=== PATIENT | male | born 1985 | race Caucasian/White ===

== ENCOUNTER 2016-11-02 21:07 | Emergency (ER) | payer OTHER ==
[~2016-11-02] VITALS: Ht 167.6 cm; Wt 119.0 kg
[~2016-11-02 21:07] MED LIST: ALBU8.5H3 INH; CETI10CA PO; DAYQUIL; DM/P295L11 PO; GUAI118L94 PO; IBUP-1542 PO
[2016-11-02 21:21] VITALS: Ht 167.6 cm; Wt 119.0 kg
[2016-11-03] MEDS ORDERED: KETOROLAC 30 MG INJ IM STA (01:13)
[2016-11-03] MEDS ORDERED: AZIT250T94 PO (01:19)
[2016-11-03] MEDS ORDERED: CIPR7.5D4 LEFT EAR (01:19)
[2016-11-03] MEDS ORDERED: IBUP-1542 PO (01:19)
[2016-11-03] MEDS ORDERED: ACETAMINOPHEN 325 MG TAB PO ONE (01:30)
--- NOTE | 2016-11-03 01:35 | ERD ---
ER Documentation Chief Complaint Date/Time DATE: 11/03/16 TIME: 01: Chief Complaint ST, COUGH BODY ACHES FEVER X 3 DAYS HPI 30-year-old otherwise healthy male presents emergency department complaining of sore throat, productive cough, bilateral ear aches, body aches, and fever 3 days. Patient states his symptoms began with a sore throat and have gradually worsened. Patient has not attempted to treat his fever or symptoms with any medication at home thus far because he states he cannot swallow anything without pain. Patient denies nausea, vomiting, diarrhea, abdominal pain, headache, visual changes or shortness of breath. Patient denies any history of asthma. ROS All systems reviewed and are negative except as per history of present illness. Medications Home Meds Active Scripts Ibuprofen* (Motrin*) 600 Mg Tab, 600 MG PO Q6, #30 TAB Prov:ROE GROSSMAN PA-C 11/03/16 Azithromycin* (Zithromax*) 250 Mg Tablet, 250 MG PO .ZPACK DIRECTED, #6 TAB TAKE 500 MG (2 TABS) THE FIRST DAY THEN 250 MG (1 TAB) DAYS 2-5 Prov:ROE GROSSMAN PA-C 11/03/16 Ciprofloxacin Hcl/Dexameth (Ciprodex Otic Suspension) 7.5 Ml Drops.susp, 4 DROP LEFT EAR BID for 7 Days, EA Prov:ROE GROSSMAN PA-C 11/03/16 Ibuprofen* (Motrin*) 600 Mg Tab, 600 MG PO Q6H Y for PAIN AND OR ELEVATED TEMP, #30 TAB Prov:ALPHONSO PIMENTEL NP 08/07/15 Albuterol Sulfate* (Proair HFA*) 8.5 Gm Hfa.aer.ad, 2 PUFF INH Q4H Y for WHEEZING AND SOB, #1 INHALER Prov:ALPHONSO PIMENTEL NP 08/07/15 Cetirizine Hcl* (Zyrtec*) 10 Mg Capsule, 10 MG PO DAILY, #30 TAB.CHEW Prov:ALPHONSO PIMENTEL NP 08/07/15 Guaifenesin-Codeine Phosphate* (Guaifenesin* with Codeine Liq) 120 Ml Liquid, 5 ML PO Q4H for COUGH, #60 ML Prov:ALPHONSO PIMENTEL NP 08/07/15 Reported Medications Ibuprofen* (Ibuprofen*) Unknown Strength Tablet, PO Q6, TAB 08/07/15 [dayQuil] Unknown Strength No Conflict Check 08/07/15 Dm/P-Ephed/Acetaminoph/Doxylam (Nyquil D Cold & Flu Liquid) Unknown Strength Liquid, PO, EA 08/07/15 Allergies Allergies: Coded Allergies: No Known Allergy (Unverified , 04/04/14) PMhx/Soc History of Surgery: Yes (cholecystectomy ) Anesthesia Reaction: No Hx Neurological Disorder: No Hx Respiratory Disorders: No Hx Cardiac Disorders: No Hx Psychiatric Problems: No Hx Miscellaneous Medical Probl: No Hx Alcohol Use: Yes (Occassionally 2-3 cans of beer a week) Hx Substance Use: No Hx Tobacco Use: No Physical Exam Vitals Vital Signs Date Time Temp Pulse Resp B/P Pulse Ox O2 Delivery O2 Flow Rate FiO2 11/02/16 21:21 102.3 95 20 128/70 99 Physical Exam Const: Well-developed, well-nourished, no acute distress Head: Atraumatic Eyes: Normal Conjunctiva ENT: Normal External Ears, right-sided tympanic membrane nonerythematous, nonbulging. Left ear canal mildly swollen and erythematous with erythema extending into the tympanic membrane. No tympanic bulging. Oropharynx erythematous with right-sided tonsillar swelling 2+ and exudate present. Left- sided tonsil mildly swollen and erythematous without exudate. Anterior painful lymphadenopathy. Neck: Full range of motion.~ No meningismus. Resp: Clear to auscultation bilaterally, no wheezes, rhonchi, rales Cardio: Regular rate and rhythm, no murmurs Abd: Soft, non tender, non distended. Normal bowel sounds Skin: No petechiae or rashes Back: No midline or flank tenderness Ext: No cyanosis, or edema Neur: Awake and alert Psych: Normal Mood and Affect Results 24 hrs Current Medications Medications (Trade) Dose Ordered Sig/Ziyad Route PRN Reason Start Time Stop Time Status Last Admin Dose Admin Ketorolac Tromethamine (Toradol) 30 mg ONCE STAT IM 11/03/16 01:13 11/03/16 01:14 DC 11/03/16 01:47 Acetaminophen (Tylenol Tab) 650 mg ONCE ONCE PO 11/03/16 01:30 11/03/16 01:31 DC 11/03/16 01:47 Procedures/MDM This is an otherwise healthy 30-year-old male who presents to the emergency department of cough, body aches, fever, earache, and sore throat 3 days. Patient's temperature measured 102.3 upon arrival. Patient is non-hypoxic and normotensive. Physical exam consistent with Upper respiratory infection and acute pharyngitis, likely bacterial as it is markedly erythematous with exudate and associated painful anterior lymphadenopathy. Lungs however were clear to auscultation. Fever well controlled with 1 dose of NSAID and Tylenol while in the emergency department. The patient does not appear to have evidence of pneumonia, urinary tract infection, bacteremia, sepsis, or meningitis. For these reasons I do not believe it is necessary to obtain laboratory testing or diagnostic imaging. I believe it would be appropriate for symptom control, and close outpatient primary care follow-up. Patient will be supplied with antibiotics as well as eardrops for symptomatic control. Continue Motrin for fever. Based on patient's history of present illness and physical examination the decision was made to discharge. The patient was re-evaluated after ED treatment and stabilizing measures, and symptoms have improved. There is no evidence of life threatening injuries or illnesses at this time. On re-examination, patient resting in no distress, stable vital signs, reports feeling better and safe for discharge with outpatient follow up with PMD in 1-2 days. Patient given return precautions. Departure Diagnosis: Primary Impression: Fever Fever type: unspecified Qualified Code: R50.9 - Fever, unspecified fever cause Additional Impressions: URI (upper respiratory infection) URI type: unspecified URI Qualified Code: J06.9 - Upper respiratory tract infection, unspecified type Ear pain, left Cough Ear pain Laterality: bilateral Qualified Code: H92.03 - Ear pain, bilateral Otitis media Otitis media type: unspecified Laterality: left Chronicity: unspecified Qualified Code: H66.92 - Left otitis media, unspecified chronicity, unspecified otitis media type Pharyngitis Pharyngitis/tonsillitis etiology: unspecified etiology Qualified Code: J02.9 - Pharyngitis, unspecified etiology Condition: Good Patient Instructions: Otitis Media, Abx Tx (Adult), Pharyngitis, Strep ( Presumed) Referrals: COMM[facility]ITY CLIN[facility] YOU HAVE RECEIVED A MEDICAL SCREENING EXAM AND THE RESULTS INDICATE THAT YOU DO NOT HAVE A CONDITION THAT REQUIRES URGENT TREATMENT IN THE EMERGENCY DEPARTMENT. FURTHER EVALUATION AND TREATMENT OF YOUR CONDITION CAN WAIT UNTIL YOU ARE SEEN IN YOUR DOCTORS OFFICE WITHIN THE NEXT 1-2 DAYS. IT IS YOUR RESPONSIBILITY TO MAKE AN APPOINTMENT FOR FOLOW-UP CARE. IF YOU HAVE A PRIMARY DOCTOR --you should call your primary doctor and schedule an appointment IF YOU DO NOT HAVE A PRIMARY DOCTOR YOU CAN CALL OUR PHYSICIAN REFERRAL HOTLINE AT IF YOU CAN NOT AFFORD TO SEE A PHYSICIAN YOU CAN CHOSE FROM THE FOLLOWING [facility], [facility] [address] [facility]. [facility] [address] [facility] [facility] [address] [facility] [facility] [address] [facility] [facility] [address] [facility]. [facility] [address] Additional Instructions: Call your primary care doctor TOMORROW for an appointment during the next 1-2 days.See the doctor sooner or return here if your condition worsens before your appointment time. ROE GROSSMAN PA-C November 03, 2016 01:34 ROE GROSSMAN PA-C November 03, 2016 01:34
[2016-11-03 02:24] VITALS: BP 128/70; PULSE 78; RESP 20; TEMP 100.6
== END 2016-11-03 02:25 | disposition home or self-care (01) ==
LOC: FTE 21:07
DX: R50.9 Fever, unspecified (principal); J06.9 Acute upper respiratory infection, unspecified; H66.92 Otitis media, unspecified, left ear; R05 Cough
CPT/HCPCS: J1885; Z7610; 96372